=== PATIENT | female | born 1995 | race American Indian/Alaskan Native ===

== ENCOUNTER 2016-03-03 11:42 | Emergency (ER) | payer MEDICAID ==
[2016-03-03 12:28] VITALS: BP 127/89
== END 2016-03-03 12:28 | disposition left against medical advice (07) ==
LOC: ED 11:42
DX: R10.9 Unspecified abdominal pain (principal); R58 Hemorrhage, not elsewhere classified; Z53.21 Procedure and treatment not carried out due to patient leaving prior to being seen by health care provider

== ENCOUNTER 2016-10-13 10:48 | Emergency (ER) | payer MEDICAID ==
[2016-10-13 11:44] VITALS: BP 115/81
[2016-10-13] MEDS ORDERED: MOTRIN PO ONE (12:46)
--- NOTE | 2016-10-13 13:16 | Emergency Department Report ---
Entered by LATOYA IGNACIO, acting as scribe for REYES CEE PA. ED Lower Extremity HPI - General Chief Complaint: Extremity Injury, Lower Stated Complaint: RIGHT ANKLE/FOOT Time Seen by Provider: 10/13/16 12:43 Source: patient Mode of arrival: Ambulatory Limitations: No Limitations - History of Present Illness Initial Comments: 21 y/o female with a PMHx of anxiety and SVT presents to the ED c/o right foot pain that began this morning. Patient states she slipped and fell down stairs this morning. Rates pain a 10/10 in severity, which she describes as throbbing in quality. Aggravated with weight bearing, movement, and palpation, and alleviated with nothing. Denies LOC, head injury/trauma, headache, dizziness, back pain, abdominal pain, chest pain, SOB, numbness, and tingling. Denies taking any medication for pain. NKDA. LORENZO Complaint: foot injury (and pain) -: This morning Injury: Foot: Right (pain secondary to injury with swelling.) Type of Injury: other (report that she fell and hurt her foot) Place: home Severity: severe Severity scale (0 -10): 10 Improves With: nothing Worsens With: weight bearing, movement, palpation Context: fall (down stairs) Associated Symptoms: ambulatory. denies: snap/pop sensation, swelling, numbness , tingling Treatments Prior to Arrival: other (none) - Related Data Home Medications Medication Instructions Recorded Confirmed Last Taken Metoprolol [Lopressor] 25 mg PO BID 10/13/16 10/13/16 10/13/16 08:00 Previous Rx's Medication Instructions Recorded Last Taken Type Ibuprofen [Motrin] 600 mg PO Q8H PRN #15 tablet 10/13/16 Unknown Rx Allergies Allergy/AdvReac Type Severity Reaction Status Date / Time No Known Allergies Allergy Verified 10/13/16 11:39 ED Review of Systems Comment: All other systems reviewed and negative Constitutional: denies: chills, fever Eyes: denies: eye pain, eye discharge, vision change ENT: denies: ear pain, throat pain Respiratory: denies: cough, shortness of breath, wheezing Cardiovascular: denies: chest pain, palpitations Endocrine: no symptoms reported Gastrointestinal: denies: abdominal pain, nausea, vomiting, diarrhea Genitourinary: denies: urgency, dysuria, discharge Musculoskeletal: joint swelling, arthralgia (RT foot pain). denies: back pain, myalgia Skin: denies: rash, lesions Neurological: denies: headache, weakness, numbness, paresthesias, confusion, abnormal gait, vertigo ED Past Medical Hx - Past Medical History Previous Medical History?: Yes Hx Hypertension: No Hx Diabetes: No Hx Deep Vein Thrombosis: No Hx Renal Disease: No Hx Sickle Cell Disease: No Hx Seizures: No Hx Psychiatric Treatment: Yes (anxiety) Hx Asthma: No Hx HIV: No Additional medical history: SVT - Surgical History Past Surgical History?: Yes Additional Surgical History: CARDIAC ABLATION - Family History Family history: no significant - Social History Smoking Status: Never Smoker Substance Use Type: None - Medications Home Medications: Home Medications Medication Instructions Recorded Confirmed Last Taken Type Ibuprofen [Motrin] 600 mg PO Q8H PRN #15 tablet 10/13/16 Unknown Rx Metoprolol [Lopressor] 25 mg PO BID 10/13/16 10/13/16 10/13/16 08:00 History ED Physical Exam - General Limitations: No Limitations General appearance: alert, in no apparent distress - Head Head exam: Present: atraumatic, normocephalic, normal inspection - Expanded Head Exam Expanded Head exam: Absent: laceration, abrasion, contusion, hematoma, racoon eyes, tyson's sign, general tenderness, tenderness of temporal artery, CSF rhinorrhea , CSF otorrhea - Eye Eye exam: Present: normal appearance, PERRL, EOMI. Absent: scleral icterus, conjunctival injection, nystagmus, periorbital swelling, periorbital tenderness Pupils: Present: normal accommodation - ENT ENT exam: Present: normal exam, normal orophraynx, mucous membranes moist, TM's normal bilaterally, normal external ear exam - Neck Neck exam: Present: normal inspection, full ROM. Absent: tenderness, meningismus, lymphadenopathy, thyromegaly - Respiratory Respiratory exam: Present: normal lung sounds bilaterally. Absent: respiratory distress, wheezes, rales, rhonchi, stridor, chest wall tenderness, accessory muscle use, decreased breath sounds - Cardiovascular Cardiovascular Exam: Present: regular rate, normal rhythm, normal heart sounds. Absent: systolic murmur, diastolic murmur, rubs, gallop - GI/Abdominal GI/Abdominal exam: Present: soft, normal bowel sounds. Absent: distended, tenderness, guarding, rebound, rigid - Extremities Exam Extremities exam: Present: full ROM, tenderness (dorsal aspect of RT foot), normal capillary refill. Absent: normal inspection, pedal edema, joint swelling , calf tenderness - Expanded Lower Extremity Exam Right Hip exam: Present: normal inspection, full ROM, external rotation, internal rotation, pelvic stability. Absent: tenderness, swelling, abrasion, laceration , ecchymosis, deformity, crepidus, dislocation, erythema, shortening Upper Leg exam: Present: normal inspection, full ROM. Absent: tenderness, swelling, abrasion, laceration, ecchymosis, deformity, crepidus, dislocation, erythema Knee exam: Present: normal inspection, full ROM, full knee extension. Absent: tenderness, swelling, abrasion, laceration, ecchymosis, deformity, crepidus, dislocation, erythema, effusion, pain w/ pronation/supination, posterior draw sign, pain/laxity with valgus, pain/laxity with varus Lower Leg exam: Present: normal inspection, full ROM. Absent: tenderness, swelling, abrasion, laceration, ecchymosis, deformity, crepidus, dislocation, erythema, palpable cord, Rosy's sign Ankle exam: Present: normal inspection, full ROM. Absent: tenderness, swelling , abrasion, laceration, ecchymosis, deformity, crepidus, dislocation, erythema, anterior draw sign Foot/Toe exam: Present: full ROM (painful with movement), tenderness (dorsal aspect of RT foot), swelling (mild swelling to RT foot anteriorly). Absent: normal inspection, abrasion, laceration, ecchymosis, deformity, crepidus, dislocation, erythema, amputation, puncture wound, foreign body, calcaneal tenderness, tenderness at base of 5th metatarsal, nail avulsion, subungual hematoma Neuro vascular tendon exam: Present: no vascular compromise. Absent: pulse deficit, abnormal cap refill, motor deficit, sensory deficit, tendon deficit, extremity cold to touch, pallor, abnormal 2-point discrimination, decreased fine /light touch, foot drop, peroneal nerve deficit, significant pain with passive ROM of distal joint Gait: Positive: observed and limited by pain - Back Exam Back exam: Present: normal inspection, full ROM. Absent: tenderness, CVA tenderness (R), CVA tenderness (L), muscle spasm, paraspinal tenderness, vertebral tenderness, rash noted - Neurological Exam Neurological exam: Present: alert, oriented X3, CN II-XII intact, abnormal gait (due to RT foot pain), reflexes normal. Absent: motor sensory deficit - Psychiatric Psychiatric exam: Present: normal affect, normal mood - Skin Skin exam: Present: warm, dry, intact, normal color. Absent: rash ED Course Vital Signs 10/13/16 11:42 Temperature 98.3 F Pulse Rate 75 Respiratory 18 Rate Blood Pressure 115/81 O2 Sat by Pulse 100 Oximetry - Reevaluation(s) Reevaluation #1: 10/13/16 13:06 Given Motrin 800 mg in emergency room for foot pain. - Orthopedic Splinting/Casting Injury #1 Side: right Lower Extremity Injury Location: foot Lower Extremity Immobilizer: post-op shoe Additional Comments: With good color, movement, sensation and temperature to right foot. ED Lower Extremity MDM - Radiology Data Radiology results: image reviewed interpreted by me: X-ray of right foot reveal no fracture or dislocation. - Medical Decision Making Course: Here status post accidental fall with complaining of right foot pain and swelling. Physical findings for tenderness, pain with movement and mild swelling to right foot anteriorly. Xray reviewed and patient had no acute fracture or dislocation. Patient given Motrin 800 mg emergency room for right foot pain. Patient discharged home and givenOrtho shoe. See procedure note for detail. She was given Motrin 800 mg in emergency room which relieved her pain. Patient discharged home to follow up with orthopedic doctor. Rice protocol explained. Diagnostics: Section for report and x-ray. Assessment/plan: 1. Accidental fall 2. Arthralgia right foot 3. Right foot sprain Patient given a prescription for Motrin and follow-up with orthopedic doctor in 5 days. RICE protocol ED Disposition Clinical Impression: Arthralgia of right foot Right foot sprain Qualifiers: Encounter type: initial encounter Qualified Code(s): S93.601A - Unspecified sprain of right foot, initial encounter Accidental fall Qualifiers: Encounter type: initial encounter Qualified Code(s): W19.XXXA - Unspecified fall, initial encounter Disposition: - TO HOME OR SELFCARE Is pt being admited?: No Does the pt Need Aspirin: No Condition: Stable Additional Instructions: Follow-up with orthopedic doctor in 5 days for right foot sprain continue to wear post op shoe until you see orthopedic doctor Follow RICE protocol Prescriptions: Ibuprofen [Motrin] 600 mg PO Q8H PRN #15 tablet PRN Reason: Pain Referrals: LEIGH WARE MD [Staff Physician] - 10/18/16 Forms: Work/School Release Form(ED) This documentation as recorded by the SANDEE stanton JASMINE,accurately reflects the service I personally performed and the decisions made by ,REYES CEE PA.
--- NOTE | 2016-10-13 13:46 | XRay Report ---
RIGHT FOOT, 3 views: History: Right foot injury, fall. The bony architecture is intact. Bony alignment is normal. No soft tissue abnormalities are seen. The joint spaces appear preserved. An accessory navicular bone is identified measuring approximately 1.2 cm. IMPRESSION: No evidence for acute injury.
== END 2016-10-13 13:35 | disposition home or self-care (01) ==
LOC: ED 10:48
DX: S93.601A Unspecified sprain of right foot, initial encounter (principal); F41.9 Anxiety disorder, unspecified; W10.8XXA Fall (on) (from) other stairs and steps, initial encounter; Y93.89 Activity, other specified; Y92.89 Other specified places as the place of occurrence of the external cause; Y99.8 Other external cause status
CPT/HCPCS: 99284

== ENCOUNTER 2018-08-17 11:03 | Emergency (ER) | payer MEDICAID, OTHER ==
[2018-08-17] MEDS ORDERED: DECADRON IV ONE (12:09)
[2018-08-17] MEDS ORDERED: NACL 0.9% 1000 ML 1,000 ML IV ONE (12:09)
[2018-08-17] MEDS ORDERED: REGLAN IV ONE (12:11)
[2018-08-17] MEDS ORDERED: BENADRYL IV ONE (12:11)
--- NOTE | 2018-08-17 12:17 | Emergency Department Report ---
ED General Adult HPI - General Chief complaint: Headache Stated complaint: HEADACHES Time Seen by Provider: 08/17/18 11:44 Source: patient Mode of arrival: Ambulatory Limitations: No Limitations - History of Present Illness Initial comments: Patient is a 23-year-old female past medical history of migraine headaches who presents with headache that occurred after she gave . Patient states that light makes her headache worse this located to the frontal portion of her head it does not radiate anywhere patient does not have any vision changes with this headache occurs this is patient's first child. She has a history of preeclampsia and she had an epidural. Patient is not hypertensive blood pressure is within the normal limits. She has no nausea or vomiting. Patient is currently refusing any medications for head due to her engaging in breast- feeding. Patient doesn't smoke and doesn't drink. Severity scale (0 -10): 0 - Related Data Home Medications Medication Instructions Recorded Confirmed Last Taken Metoprolol [Lopressor] 25 mg PO BID 10/13/16 10/13/16 10/13/16 08:00 Previous Rx's Medication Instructions Recorded Last Taken Type Ibuprofen [Motrin] 600 mg PO Q8H PRN #15 tablet 10/13/16 Unknown Rx Allergies Allergy/AdvReac Type Severity Reaction Status Date / Time ceftriaxone [From Rocephin] AdvReac Severe Dizziness Verified 08/17/18 11:04 nitrofurantoin AdvReac Severe Dizziness Verified 08/17/18 11:04 ED Review of Systems ROS: Stated complaint: HEADACHES Other details as noted in HPI Constitutional: denies: chills, fever Eyes: denies: eye pain, eye discharge, vision change ENT: denies: ear pain, throat pain Respiratory: denies: cough, shortness of breath, wheezing Cardiovascular: denies: chest pain, palpitations Endocrine: no symptoms reported Gastrointestinal: denies: abdominal pain, nausea, diarrhea Genitourinary: denies: urgency, dysuria, discharge Musculoskeletal: denies: back pain, joint swelling, arthralgia Skin: denies: rash, lesions Neurological: headache. denies: weakness, paresthesias Psychiatric: denies: anxiety, depression Hematological/Lymphatic: denies: easy bleeding, easy bruising ED Past Medical Hx - Past Medical History Hx Hypertension: No Hx Diabetes: No Hx Deep Vein Thrombosis: No Hx Renal Disease: No Hx Sickle Cell Disease: No Hx Seizures: No Hx Psychiatric Treatment: Yes (anxiety) Hx Asthma: No Hx HIV: No Additional medical history: SVT - Surgical History Additional Surgical History: CARDIAC ABLATION - Social History Smoking Status: Never Smoker Substance Use Type: None - Medications Home Medications: Home Medications Medication Instructions Recorded Confirmed Last Taken Type Ibuprofen [Motrin] 600 mg PO Q8H PRN #15 tablet 10/13/16 Unknown Rx Metoprolol [Lopressor] 25 mg PO BID 10/13/16 10/13/16 10/13/16 08:00 History ED Physical Exam - General Limitations: No Limitations General appearance: alert, in no apparent distress - Head Head exam: Present: atraumatic, normocephalic - Eye Eye exam: Present: normal appearance - ENT ENT exam: Present: mucous membranes moist - Neck Neck exam: Present: normal inspection - Respiratory Respiratory exam: Present: normal lung sounds bilaterally. Absent: respiratory distress - Cardiovascular Cardiovascular Exam: Present: regular rate, normal rhythm. Absent: systolic murmur, diastolic murmur, rubs, gallop - GI/Abdominal GI/Abdominal exam: Present: soft, normal bowel sounds - Extremities Exam Extremities exam: Present: normal inspection - Back Exam Back exam: Present: normal inspection - Neurological Exam Neurological exam: Present: alert, oriented X3 - Psychiatric Psychiatric exam: Present: normal affect, normal mood - Skin Skin exam: Present: warm, dry, intact, normal color. Absent: rash ED Course Vital Signs 08/17/18 08/17/18 08/17/18 11:13 11:24 11:31 Temperature 98.7 F Pulse Rate 104 H 97 H 93 H Respiratory 20 16 19 Rate Blood Pressure 132/92 137/80 O2 Sat by Pulse 100 Oximetry 08/17/18 11:40 Temperature Pulse Rate Respiratory 19 Rate Blood Pressure O2 Sat by Pulse 100 Oximetry ED Medical Decision Making - Lab Data Result diagrams: 08/17/18 12:21 08/17/18 12:21 Lab Results 08/17/18 08/17/18 Range/Units 12:21 12:21 WBC 8.6 (4.5-11.0) K/mm3 RBC 4.27 (3.65-5.03) M/mm3 Hgb 9.7 L (10.1-14.3) gm/dl Hct 31.0 (30.3-42.9) % MCV 73 L (79-97) fl MCH 23 L (28-32) pg MCHC 31 (30-34) % RDW 17.5 H (13.2-15.2) % Plt Count 227 (140-440) K/mm3 Lymph % (Auto) 22.9 (13.4-35.0) % Johnston % (Auto) 8.3 H (0.0-7.3) % Eos % (Auto) 1.6 (0.0-4.3) % Baso % (Auto) 0.4 (0.0-1.8) % Lymph # 2.0 (1.2-5.4) K/mm3 Johnston # 0.7 (0.0-0.8) K/mm3 Eos # 0.1 (0.0-0.4) K/mm3 Baso # 0.0 (0.0-0.1) K/mm3 Seg Neutrophils % 66.8 (40.0-70.0) % Seg Neutrophils # 5.7 (1.8-7.7) K/mm3 Sodium 144 (137-145) mmol/L Potassium 4.3 (3.6-5.0) mmol/L Chloride 106.0 (98-107) mmol/L Carbon Dioxide 25 (22-30) mmol/L Anion Gap 17 mmol/L BUN 8 (7-17) mg/dL Creatinine 0.7 (0.7-1.2) mg/dL Estimated GFR > 60 ml/min BUN/Creatinine Ratio 11 % Glucose 74 (65-100) mg/dL Calcium 9.2 (8.4-10.2) mg/dL Total Bilirubin 0.30 (0.1-1.2) mg/dL AST 44 H (5-40) units/L ALT 35 (7-56) units/L Alkaline Phosphatase 90 (35-129) units/L Total Protein 7.5 (6.3-8.2) g/dL Albumin 3.6 L (3.9-5) g/dL Albumin/Globulin Ratio 0.9 % - Radiology Data Radiology results: report reviewed, image reviewed CT head: Shows no acute intracranial process. - Medical Decision Making Cdx: Migraine headache ddx: Tension Headache, Cluster headache I will get ct head, blood work and IV medication Pt refused all all pain medication. Critical care attestation.: If time is entered above; I have spent that time in minutes in the direct care of this critically ill patient, excluding procedure time. ED Disposition Clinical Impression: Migraine headache Qualifiers: Migraine type: unspecified Status migrainosus presence: without status migrainosus Intractability: not intractable Qualified Code(s): G43.909 - Migraine, unspecified, not intractable, without status migrainosus Disposition: TO HOME OR SELFCARE Is pt being admited?: No Does the pt Need Aspirin: No Condition: Stable Instructions: Migraine Headache (ED) Referrals: JANETH TORRES MD [Primary Care Provider] - 3-5 Days
[2018-08-17 13:07] LABS: Basophils % (Auto) 0.4 % (0.0-1.8); Eosinophils # (Auto) 0.1 K/mm3 (0.0-0.4); Eosinophils % (Auto) 1.6 % (0.0-4.3); Hemoglobin 9.7 gm/dl (10.1-14.3); Lymphocytes % (Auto) 22.9 % (13.4-35.0); Mean Corpuscular HGB Conc 31 % (30-34); Mean Corpuscular Volume 73 fl (79-97); Monocytes # (Auto) 0.7 K/mm3 (0.0-0.8); Monocytes % (Auto) 8.3 % (0.0-7.3); Platelet Count 227 K/mm3 (140-440); Red Blood Count 4.27 M/mm3 (3.65-5.03); Red Cell Distribution Width 17.5 % (13.2-15.2)
[2018-08-17 13:18] LABS: Alanine Aminotransferase 35 units/L (7-56); Albumin 3.6 g/dL (3.9-5); BUN/Creatinine Ratio 11; Blood Urea Nitrogen 8 mg/dL (7-17); Calcium 9.2 mg/dL (8.4-10.2); Hemolysis Index 3
--- NOTE | 2018-08-17 13:54 | Cat Scan Report ---
CT head without contrast INDICATION : Headache. H/o preeclampsia. 5 days . TECHNIQUE: Axial imaging performed from the skull apex through the skull base without the use of con trast. All CT scans at this location are performed using CT dose reduction for ALARA by means of aut omated exposure control. COMPARISON: None FINDINGS: Parenchyma: Normal almaguer-white differentiation and no abnormal density. Ventricles: Ventricles are normal in size and appear symmetric. Soft tissues: Soft tissues including the orbits appear normal. Bones: No acute osseous abnormality. Sinuses: Sinuses and mastoid air cells are clear. IMPRESSION: Normal. Signer Name: Ludin Schuster MD Signed: 08/17/2018 1:49 PM Workstation Name: [id number]
[2018-08-17 16:22] VITALS: BP 140/83
== END 2018-08-17 16:20 | disposition home or self-care (01) ==
LOC: ED 11:03
DX: O99.89 Other specified diseases and conditions complicating pregnancy, childbirth and the puerperium (principal); G43.909 Migraine, unspecified, not intractable, without status migrainosus; O90.89 Other complications of the puerperium, not elsewhere classified; R42 Dizziness and giddiness; O99.345 Other mental disorders complicating the puerperium; F41.9 Anxiety disorder, unspecified; Z86.79 Personal history of other diseases of the circulatory system; Z79.899 Other long term (current) drug therapy; Z88.1 Allergy status to other antibiotic agents; Z87.59 Personal history of other complications of pregnancy, childbirth and the puerperium
CPT/HCPCS: 36415; 70450; 80053; 85025; 96360; 96361; 99284; J7030; J1100; J1200; J2765

== ENCOUNTER 2018-10-01 11:26 | Emergency (ER) | payer MEDICAID ==
--- NOTE | 2018-10-01 12:21 | Emergency Department Report ---
Upper Extremity - HPI Chief Complaint: Extremity Injury, Upper Stated Complaint: LT HAND PAIN Time Seen by Provider: 10/01/18 12:20 Upper Extremity: Left Hand (left hand pain, weakness and reported injury.) Mechanism: Other (Lifting) Severity: severe (9/10) Symptoms: Yes Pain with Movement (left hand at palm), Yes Limited Range of Movement (towards movement), Yes Weakness (left hand), No Deformity, No Numbness, No Swelling, No Bruising/Ecchymosis, No Laceration or Abrasion Other History: pt report that she was moved in 2 days ago and she noticed today that her left hand is weak and it she has a bone sticking out. Pain is 9 out of 10 achy and she reports some weakness in her left hand. Denies any cuts to her left hand. Denies any radiation of pain beyond hand. Pain is intermittent and worse and movement. No medication taken prior to coming to the emergency room. ED Review of Systems ROS: Stated complaint: LT HAND PAIN Other details as noted in HPI Constitutional: denies: chills, fever Respiratory: denies: cough, shortness of breath Cardiovascular: denies: chest pain Gastrointestinal: denies: nausea, vomiting Musculoskeletal: arthralgia, other (reports bone sticking out of left hand) Skin: denies: rash Neurological: weakness (left hand). denies: numbness, paresthesias ED Past Medical Hx - Past Medical History Previous Medical History?: Yes Hx Hypertension: No Hx Diabetes: No Hx Deep Vein Thrombosis: No Hx Renal Disease: No Hx Sickle Cell Disease: No Hx Seizures: No Hx Psychiatric Treatment: Yes (anxiety) Hx Asthma: No Hx HIV: No Additional medical history: SVT - Surgical History Past Surgical History?: Yes Additional Surgical History: CARDIAC ABLATION - Family History Family history: no significant - Social History Smoking Status: Never Smoker Substance Use Type: None - Medications Home Medications: Home Medications Medication Instructions Recorded Confirmed Last Taken Type Ibuprofen [Motrin] 600 mg PO Q8H PRN #15 tablet 10/13/16 Unknown Rx Metoprolol [Lopressor] 25 mg PO BID 10/13/16 10/13/16 10/13/16 08:00 History Ibuprofen [Motrin] 600 mg PO Q8H PRN #12 tablet 10/01/18 Unknown Rx Upper Extremity Exam - Exam General: Vital signs noted. No distress. Alert and acting appropriately. This is a 23-year-old female well-nourished well-developed in no acute distress. Head and Torso: No HEENT Abnormality, No Neck Tenderness, No Chest/Lungs Abnormality, No Abdominal Tenderness, No Back Tenderness Shoulder Exam: Yes Normal Range of Motion in Shoulder, No Shoulder Tenderness, No Clavicle Tenderness, No Shoulder Deformity, No AC Joint Tenderness Arm Exam: No Arm/Humerus Tenderness, No Arm Deformity Elbow: Yes Normal Range of Motion in Elbow, No Elbow Tenderness, No Elbow Deformity Forearm: No Forearm Tenderness, No Forearm Deformity, No Pain with Pronation, No Pain with Supination Wrist: Yes Normal ROM in Wrist, No Wrist Tenderness, No Wrist Deformity, No Snuffbox Tenderness, No Pain with Axial Thumb Compression Hand: Yes Hand Tenderness (mild tenderness to left palm with callous noted. No bony abnormality noted), Yes Normal ROM in Digit(s), No Hand Deformity, No Digit Tenderness, No Digit(s) Deformity, No Tendon Dysfunction CMS Exam: Yes Normal Distal Pulses (No cce. + 2 pulses in all extremities, no neurovascular compromise), Yes Normal Capillary Refill, Yes Normal Distal Sensation, No Broken Skin ED Course Vital Signs 10/01/18 11:42 Temperature 98.6 F Pulse Rate 76 Respiratory 18 Rate Blood Pressure 122/84 O2 Sat by Pulse 99 Oximetry - Reevaluation(s) Reevaluation #1: 10/01/18 13:29 Given Motrin 800 mg emergency room which helped her pain. Velcro thumb spica splint applied. - Orthopedic Splinting/Casting Injury #1 Side: left Upper Extremity Injury Location: hand Upper Extremity Immobilizer: thumb spica (Velcro) Additional Comments: Patient with good color, sensation and movement in temperature to right hand sta tus post splint placement ED Medical Decision Making - Radiology Data Radiology results: image reviewed interpreted by me: X-ray of left hand reviewed by myself and Dr. Paulino. No abnormality seen. Still awaiting radiologist to release reported. Velcro splint and referred to orthopedic - Medical Decision Making This is a 23-year-old female here concerned about bone sticking out of her left hand. Examination showed callused her left hand without any deformity and she has full range of motion with minimal pain with movement and tenderness approximately to the left palm without any swelling. X-ray reviewed by myself and Dr. Selin Paulino without any acute findings. This is discussed the patient's along with diagnosis, treatment plan and need to follow up with primary care and orthopedic doctor. Thumb spica Velcro splint applied to area and wrist therapy explained she was understanding. Patient given Motrin 800 mg emergency room for pain which she was playing. Discharged home in stable condition with prescription for Motrin - Differential Diagnosis fracture, contusion, MSK pain Critical care attestation.: If time is entered above; I have spent that time in minutes in the direct care of this critically ill patient, excluding procedure time. ED Disposition Clinical Impression: Callus, Hand pain, right Disposition: DC-01 TO HOME OR SELFCARE Is pt being admited?: No Does the pt Need Aspirin: No Condition: Stable Instructions: Arthralgia (ED), Splint Care (ED), RICE Therapy (ED) Additional Instructions: Follow-up with primary care doctor or an orthopedic doctor as discussed in 2-3 days Take Motrin for pain as prescribed if condition worsens in any develop increased pain, numbness and stiffness to hand and finger, fever or chills and difficulty moving upper extremity please return to emergency room JU[facility]ON Referrals: LEIGH WARE MD [Staff Physician] - 2-3 Days [facility] [Outside] - 2-3 Days Forms: Work/School Release Form(ED)
[2018-10-01] MEDS ORDERED: IBUPROFEN PO ONE (12:26)
--- NOTE | 2018-10-01 13:28 | XRay Report ---
LEFT HAND 3 VIEWS INDICATION / CLINICAL INFORMATION: Left hand injury with pain, swelling and weakness. COMPARISON: None available. FINDINGS: BONES and JOINT(S): No acute fracture or subluxation. No significant arthritis. SOFT TISSUES: No significant abnormality. ADDITIONAL FINDINGS: None. IMPRESSION: No significant abnormality of the left hand. Signer Name: Andres Ibarra MD Signed: 10/01/2018 1:23 PM Workstation Name: [id number]
[2018-10-01 13:48] VITALS: BP 120/80
== END 2018-10-01 13:47 | disposition home or self-care (01) ==
LOC: ED 11:26
DX: L84 Corns and callosities (principal); R53.1 Weakness; F41.9 Anxiety disorder, unspecified; Z79.899 Other long term (current) drug therapy; Z88.1 Allergy status to other antibiotic agents; Z88.8 Allergy status to other drugs, medicaments and biological substances

== ENCOUNTER 2019-03-13 11:01 | Emergency (ER) | payer MEDICAID ==
[2019-03-13 11:19] VITALS: BP 132/83
--- NOTE | 2019-03-13 11:24 | Emergency Department Report ---
ED Chest Pain HPI - General Chief Complaint: Chest Pain Stated Complaint: CHEST PAIN, SOB, CHEST TIGHTNESS Time Seen by Provider: 03/13/19 11:19 Source: patient Mode of arrival: Ambulatory Limitations: No Limitations - History of Present Illness Initial Comments: Ms. Waddell is a 23 yo female with hx of SVT s/p ablation x 2 (last December) presents with stabbing chest pain and shortness of breath. Intermittent since last night. Dr. Garcia [employer] recommended that she comes to ED for EKG. She denies leg pain, travel, oral contraceptive. No fever. No cough. MD Complaint: chest pain -: Gradual, days(s) (1) Onset: during rest Pain Location: substernal Severity: mild Severity scale (0 -10): 5 Quality: sharp Consistency: intermittent Improves With: nothing Worsens With: nothing - Related Data Home Medications Medication Instructions Recorded Confirmed Last Taken Metoprolol [Lopressor] 25 mg PO BID 10/13/16 10/13/16 10/13/16 08:00 Previous Rx's Medication Instructions Recorded Last Taken Type Ibuprofen [Motrin] 600 mg PO Q8H PRN #15 tablet 10/13/16 Unknown Rx Ibuprofen [Motrin] 600 mg PO Q8H PRN #12 tablet 10/01/18 Unknown Rx Allergies Allergy/AdvReac Type Severity Reaction Status Date / Time ceftriaxone [From Rocephin] AdvReac Severe Dizziness Verified 08/17/18 11:04 nitrofurantoin AdvReac Severe Dizziness Verified 08/17/18 11:04 Heart Score - HEART Score History: Slightly suspicious EKG: Normal Age: < 45 Risk factors: No known risk factors Troponin: < normal limit HEART Score: 0 ED Review of Systems ROS: Stated complaint: CHEST PAIN, SOB, CHEST TIGHTNESS Other details as noted in HPI Comment: All other systems reviewed and negative Constitutional: denies: fever, malaise Respiratory: denies: cough Cardiovascular: chest pain, palpitations ED Past Medical Hx - Past Medical History Previous Medical History?: Yes Hx Hypertension: No Hx Diabetes: No Hx Deep Vein Thrombosis: No Hx Renal Disease: No Hx Sickle Cell Disease: No Hx Seizures: No Hx Psychiatric Treatment: Yes (anxiety) Hx Asthma: No Hx HIV: No Additional medical history: SVT - Surgical History Past Surgical History?: Yes Additional Surgical History: CARDIAC ABLATION - Social History Smoking Status: Never Smoker Substance Use Type: None - Medications Home Medications: Home Medications Medication Instructions Recorded Confirmed Last Taken Type Ibuprofen [Motrin] 600 mg PO Q8H PRN #15 tablet 10/13/16 Unknown Rx Metoprolol [Lopressor] 25 mg PO BID 10/13/16 10/13/16 10/13/16 08:00 History Ibuprofen [Motrin] 600 mg PO Q8H PRN #12 tablet 10/01/18 Unknown Rx ED Physical Exam - General Limitations: No Limitations General appearance: alert, in no apparent distress - Head Head exam: Present: atraumatic, normocephalic - Eye Eye exam: Present: normal appearance - ENT ENT exam: Present: mucous membranes moist - Neck Neck exam: Present: normal inspection, full ROM - Respiratory Respiratory exam: Present: normal lung sounds bilaterally. Absent: respiratory distress, wheezes, rales, rhonchi - Cardiovascular Cardiovascular Exam: Present: regular rate, normal rhythm, normal heart sounds. Absent: systolic murmur, diastolic murmur, rubs, gallop - GI/Abdominal GI/Abdominal exam: Present: soft, normal bowel sounds. Absent: distended, tenderness, guarding, rebound - Extremities Exam Extremities exam: Present: normal inspection - Back Exam Back exam: Present: normal inspection - Neurological Exam Neurological exam: Present: alert, oriented X3 - Psychiatric Psychiatric exam: Present: normal affect, normal mood - Skin Skin exam: Present: warm, dry, intact, normal color. Absent: rash ED Course Vital Signs 03/13/19 11:16 Temperature 98.2 F Pulse Rate 79 Respiratory 18 Rate Blood Pressure 132/83 O2 Sat by Pulse 100 Oximetry ARTUR score - Artur Score Age > 65: (0) No Aspirin use within the Past 7 Days: (0) No 3 or more CAD Risk Factors: (0) No 2 or more Angina events in past 24 hrs: (0) No Known CAD with more than 50% Stenosis: (0) No Elevated Cardiac Markers: (0) No ST Deviation Greater than 0.5mm: (0) No ARTUR Score: 0 ED Medical Decision Making - EKG Data -: EKG Interpreted by Nm EKG shows normal: sinus rhythm, axis, intervals, QRS complexes, ST-T waves Rate: normal - EKG Data Interpretation: normal EKG - Medical Decision Making Ms. Waddell presents with chest pain possibly PVC vs chest wall pain vs GERD. Normal EKG. No indication of PE/PNA/pericarditis. Given reassurance and return precautions. Critical care attestation.: If time is entered above; I have spent that time in minutes in the direct care of this critically ill patient, excluding procedure time. ED Disposition Clinical Impression: Chest pain Disposition: DC-01 TO HOME OR SELFCARE Is pt being admited?: No Does the pt Need Aspirin: No Condition: Stable Instructions: Chest Pain (ED) Referrals: ALECIA BELLO MD [Staff Physician] - 3-5 Days Forms: Work/School Release Form(ED)
== END 2019-03-13 12:07 | disposition home or self-care (01) ==
LOC: ED 11:01
DX: R07.89 Other chest pain (principal); R06.02 Shortness of breath; F41.9 Anxiety disorder, unspecified; Z98.890 Other specified postprocedural states; Z88.8 Allergy status to other drugs, medicaments and biological substances; Z79.899 Other long term (current) drug therapy
CPT/HCPCS: 93005; 93010; 99282